=== PATIENT | male | born 2000 | race Hispanic/Latino ===

== ENCOUNTER 2021-06-20 08:37 | Outpatient (CLI) | payer OTHER | END 2021-06-20 08:38 | disposition home or self-care (01) | LOC: CSHULT 08:37 | PROVIDERS: ATTEND Nurse Practitioner Family | DX: K29.60 Other gastritis without bleeding (principal); R11.15 Cyclical vomiting syndrome unrelated to migraine; R10.13 Epigastric pain | CPT/HCPCS: 76700 ==